=== PATIENT | male | born 1985 | race African-American/Black ===

== ENCOUNTER 2017-06-24 11:31 | Emergency (ER) | payer MEDICAID ==
[~2017-06-24] VITALS: Ht 170.2 cm; Wt 76.2 kg
--- NOTE | 2017-06-24 11:49 | NUR ---
no answer in er lobby
[2017-06-24 11:53] VITALS: BP 127/77
--- NOTE | 2017-06-24 12:50 | NUR ---
31/M BIB SELF C/O R EYE swelling redness THIS AM. PT unable to open, denies pain, denies trauma/injurY. STS STARTED OUT A PIMPLE NEAR R EYE. DENIES FEVER. NO DRAINAGE NOTED. DENIES PMH. STS TAKES multivitamins. NO OTHER ALLERGIES. VSS; PATIENT POSITIONED FOR COMFORT; HOB ELEVATED; BEDRAILS UP X2; BED DOWN. ER MD MADE AWARE OF PT STATUS.
[2017-06-24] MEDS ORDERED: NACL 0.9% 1,000 ML IV ONE (12:55)
--- NOTE | 2017-06-24 13:00 | NUR ---
22G IV TO LHAND. PT FERNANDO WELL. IVF GIVEN PER MAR.
--- NOTE | 2017-06-24 13:00 | NUR ---
Patient being evaluated by DR. BRYANT at bedside.
[2017-06-24 13:01] LABS: BASOPHILS # (AUTO) 0.3 K/uL (0.00-0.22); BASOPHILS % (AUTO) 2.6 % (0.0-2.0); EOSINOPHILS % (AUTO) 0.2 % (0.0-4.0); HEMATOCRIT 43.9 % (36-52); HEMOGLOBIN 14.5 g/dL (12.0-18.0); LYMPHOCYTES # (AUTO) 2.1 K/uL (2.0-11.5); LYMPHOCYTES % (AUTO) 20.7 % (20.5-51.1); MEAN CORPUSCULAR HEMOGLOBIN 29 pg (27-31); MEAN CORPUSCULAR HGB CONC 33 g/dL (33-37); MEAN CORPUSCULAR VOLUME 87 fL (80-94); MONOCYTES # (AUTO) 0.8 K/uL (0.8-1.0); MONOCYTES % (AUTO) 7.7 % (1.7-9.3); NEUTROPHILS # (AUTO) 6.9 K/uL (1.8-7.7); NEUTROPHILS % (AUTO) 68.8 % (42.2-75.2); PLATELET COUNT (AUTO) 206 K/uL (140-450); RED BLOOD CELL COUNT(AUTO) 5.07 MIL/uL (4.20-6.10); RED CELL DISTRIBUTION WIDTH 12.6 % (11.6-13.7); WHITE BLOOD COUNT (AUTO) 10.1 K/uL (4.8-10.8)
[2017-06-24 13:20] LABS: APPEARANCE,URINE CLEAR (CLEAR); BILIRUBIN,URINE NEGATIVE (NEGATIVE); BLOOD, URINE NEGATIVE (NEGATIVE); COLOR,URINE YELLOW (YELLOW); LEUKOCYTE ESTERASE ,URINE NEGATIVE (NEGATIVE); NITRITE, URINE NEGATIVE (NEGATIVE); PH,URINE 6.5 (5.0-9.0); UGLUCOSE NEGATIVE (NEGATIVE)
[2017-06-24 13:23] LABS: PROTHROMBIN TIME 11.6 secs (10.8-13.4)
[2017-06-24 13:26] LABS: ALBUMIN 4.2 g/dL (3.4-5.0); ANION GAP 12.7 (8-16); CARBON DIOXIDE 26.2 mmol/L (21-32); CREATININE 0.9 mg/dL (0.7-1.3); POTASSIUM 3.9 mmol/L (3.5-5.1)
--- NOTE | 2017-06-24 13:37 | NUR ---
AAO PT TAKEN OFF THE UNIT VIA WHEEL CHAIR FOR CT
[2017-06-24] MEDS ORDERED: ceFAZolin 1,000 MG VIAL ONE (14:48)
[2017-06-24 15:44] VITALS: BP 114/57
--- NOTE | 2017-06-24 15:44 | NUR ---
Patient discharged with v/s stable. Written and verbal after care instructions given and explained. Patient alert, oriented and verbalized understanding of instructions. Ambulatory with steady gait. All questions addressed prior to discharge. ID band removed. Patient advised to follow up with PMD. Rx of CLINDAMYCIN given. Patient educated on indication of medication including possible reaction and side effects. Opportunity to ask questions provided and answered.
== END 2017-06-24 15:44 | disposition home or self-care (01) ==
LOC: MED 11:31
DX: L03.213 Periorbital cellulitis (principal)
CPT/HCPCS: 36415; 70481; 80053; 81003; 83605; 85025; 85610; 87040; 96361; 96365; 99285; J0690; J7030; J7060; Q9967